=== PATIENT | female | born 1945 | race Caucasian/White ===

== ENCOUNTER → 2022-01-14 | Outpatient (CLI) | payer MEDICARE ==
[~2022-01-14] MED LIST: ROCKLATAN 0.022.5 ML OU; TYLENOL EXTRA500 MG PO
[2022-01-14 10:47] LABS: HEMOGLOBIN 12.7 gm/dl (12.3-15.3); RED BLOOD COUNT 4.17 M/UL (4.00-5.10)
== END ==
LOC: OPSV2 10:00 → EDSTATUS 10:00
PROVIDERS: Orthopaedic Surgery
DX: Z01.818 Encounter for other preprocedural examination (principal); M17.11 Unilateral primary osteoarthritis, right knee
CPT/HCPCS: 36415; 71046; 80048; 85027; 93005

== ENCOUNTER → 2022-01-23 | Outpatient (CLI) | payer MEDICARE ==
[~2022-01-23] MED LIST changes: +ASPIRIN EC81 MG PO; +CLARITIN10 MG PO; +CYCLOBENZAPRINE10 MG PO; +ELIQUIS2.5 MG PO; +ENDOCET 10-3251 EACH PO; +INDOCIN CAP 2525 MG PO; +ROCKLATAN 0.022.5 ML EYEBOTH; -ROCKLATAN 0.022.5 ML OU; +ZOFRAN 4 MG TAB4 MG PO
== END ==
LOC: LAB 10:09
PROVIDERS: Orthopaedic Surgery
DX: Z01.812 Encounter for preprocedural laboratory examination (principal); M17.11 Unilateral primary osteoarthritis, right knee
CPT/HCPCS: 36415; 80048; 86850; 86900; 86901

== ENCOUNTER 2022-01-24 06:44 | Day surgery (SDC) | payer MEDICARE ==
[~2022-01-24] VITALS: Ht 167.6 cm; Wt 96.2 kg
[~2022-01-24 06:44] MED LIST changes: -ASPIRIN EC81 MG PO; -CLARITIN10 MG PO; -CYCLOBENZAPRINE10 MG PO; -ELIQUIS2.5 MG PO; -ENDOCET 10-3251 EACH PO; -INDOCIN CAP 2525 MG PO; -ZOFRAN 4 MG TAB4 MG PO
[2022-01-24] MEDS ORDERED: CLARITIN10 MG PO (07:28)
[2022-01-24] MEDS ORDERED: INDOCIN CAP 2525 MG PO (07:28)
[2022-01-24] MEDS ORDERED: ZOFRAN 4 MG TAB4 MG PO (08:10)
[2022-01-24] MEDS ORDERED: ENDOCET 10-3251 EACH PO (08:10)
[2022-01-24] MEDS ORDERED: CYCLOBENZAPRINE10 MG PO (08:10)
[2022-01-24] MEDS ORDERED: ASPIRIN EC81 MG PO (08:10)
--- NOTE | 2022-01-24 15:29 | NUR ---
PEDAL PULSES 1+ BILATERALLY, TOES ARE PINK AND WARM WITH BRISK CAP REFILL BILATERALLY. IS EDUCATION PROVIDED WITH PATIENT DEMONSTRATION, SHE OBTAINED APPROXIMATELY 800ML OF INSPIRED VOLUME.
--- NOTE | 2022-01-24 17:12 | NUR ---
POLAR ICE APPLIED CONTINUOUSLY TOLERATED RIGHT KNEE
[2022-01-25 11:03] LABS: HEMOGLOBIN 11.4 gm/dl (12.3-15.3); RED BLOOD COUNT 3.64 M/UL (4.00-5.10); WHITE BLOOD COUNT 22.6 K/UL (4.5-11.0)
[2022-01-25] MEDS ORDERED: ELIQUIS2.5 MG PO (11:18)
== END 2022-01-25 14:26 | disposition home or self-care (01) ==
LOC: OR 06:44 → EDSTATUS 10:45 → M/S 14:25 → OR 01-25 14:26
PROVIDERS: Nurse Practitioner Family
DX: M17.11 Unilateral primary osteoarthritis, right knee (principal); G89.18 Other acute postprocedural pain; E78.5 Hyperlipidemia, unspecified; Z88.5 Allergy status to narcotic agent
CPT/HCPCS: 73560; 80048; 85027; 97116-GP-CQ; 97161; 97166; 97530; 97535; C1713; C1776; J0171; J0690; J0735; J1100; J1885; J2274; J2405; J2704; J2710; J2765; J2795; J3010